=== PATIENT | female | born 1950 | race Asian ===

== ENCOUNTER → 2024-10-16 | Outpatient (CLI) | payer MEDICARE ==
[~2024-10-16] MED LIST: ATOR80TA59; DIGO0.123; EZET10TA21; FURO20TA2; GLIP5TAB17; JANU100T; JARD1TAB; LANTINJ4; PANT20TA6; SOTA80TA32; XARE20TA
[2024-10-16 10:45] VITALS: TEMP 98.1
[2024-10-16] MEDS: LIDOCAINE 1% MDV 20 ML VIAL SC STA (11:15)
[2024-10-16 11:30] VITALS: BP 172/86; O2SAT 96
== END ==
LOC: M IRPRO 10:36 → EDUNIT# 11:30
PROVIDERS: ATTEND Otolaryngology
DX: D11.7 Benign neoplasm of other major salivary glands (principal)